=== PATIENT | female | born 1990 | race Caucasian/White ===

== ENCOUNTER 2016-07-05 18:33 | Emergency (ER) | payer BC ==
[~2016-07-05] VITALS: Ht 172.7 cm; Wt 112.9 kg
[2016-07-05 18:45] VITALS: BP 103/72; PULSE 95; RESP 16; TEMP 97.1; O2SAT 99
--- NOTE | 2016-07-05 19:15 | NUR ---
AAOX4. PT STATED ABDOMINAL PAIN LEVEL OF 6/10, NOT RADIATING TO THE BACK. DENIED NAUSEA/VOMITING AT THAT TIME. DENIES SOB, DISTRESS. WILL CONTINUE TO MONITOR.
--- NOTE | 2016-07-05 19:48 | NUR ---
Patient to ER bed 3 to gown for evaluation. Side rails up. Report given to DAMIAN Whatley
[2016-07-05] MEDS ORDERED: NACL 0.9% 1,000 ML IV ONE (19:53)
--- NOTE | 2016-07-05 19:53 | NUR ---
ER at bedside examining patient.
[2016-07-05] MEDS ORDERED: MORPHINE 2 MG/ML INJ. SYRINGE IVP ONE (20:00)
[2016-07-05 20:13] LABS: BASOPHILS # (AUTO) 0.1 K/uL (0.0-0.2); BASOPHILS % (AUTO) 1.8 % (0.0-2.0); EOSINOPHILS # (AUTO) 0.1 K/uL (0.0-0.4); EOSINOPHILS % (AUTO) 0.8 % (0.0-4.0); HEMATOCRIT 40.2 % (36-48); HEMOGLOBIN 13.3 g/dL (12.0-16.0); LYMPHOCYTES % (AUTO) 12.6 % (20.5-51.5); MEAN CORPUSCULAR HEMOGLOBIN 28 pg (27-31); MEAN CORPUSCULAR HGB CONC 33 % (32-36); MEAN CORPUSCULAR VOLUME 85 fL (79.0-98.0); MONOCYTES # (AUTO) 0.5 K/uL (0.0-1.0); MONOCYTES % (AUTO) 6.1 % (1.7-9.3); NEUTROPHILS # (AUTO) 6.2 K/uL (1.8-7.7); NEUTROPHILS % (AUTO) 78.7 % (40.0-70.0); PLATELET COUNT (AUTO) 126 K/uL (130-430); RED BLOOD CELL COUNT(AUTO) 4.75 MIL/uL (4.2-6.2); RED CELL DISTRIBUTION WIDTH 13.9 % (9.0-15.0); WHITE BLOOD COUNT (AUTO) 7.9 K/uL (4.8-10.8)
[2016-07-05 20:26] LABS: CALCIUM 7.9 mg/dL (8.4-11.0); CREATININE 0.86 mg/dL (0.55-1.30); POTASSIUM 3.8 mmol/L (3.5-5.1)
[2016-07-05 20:30] LABS: ALBUMIN 3.6 g/dL (3.4-4.8); TOTAL BILIRUBIN 0.2 mg/dL (0.0-1.0); TOTAL PROTEIN, SERUM 7.6 g/dL (6.4-8.3)
[2016-07-05 20:31] LABS: INR 1.1 (0.8-1.2); PROTHROMBIN TIME 11.7 SECS (9.5-12.5)
[2016-07-05 21:10] VITALS: BP 110/76; PULSE 92; RESP 18; TEMP 97.3; O2SAT 100
--- NOTE | 2016-07-05 21:10 | NUR ---
Patient given written and verbal discharge instructions and verbalizes understanding. ER MD discussed with patient the results and treatment provided. Patient in stable condition. ID arm band removed. IV catheter removed intact and dressing applied, no active bleeding. Rx of LOMOTIL given. Patient educated on pain management and to follow up with PMD. Pain Scale 0/10. Opportunity for questions provided and answered.
== END 2016-07-05 21:10 | disposition home or self-care (01) ==
LOC: SED 18:33
DX: K52.9 Noninfective gastroenteritis and colitis, unspecified (principal)
CPT/HCPCS: 36415; 80053; 82150; 83690; 85025; 85610; 85730; 96361; 96374; 99284; J2270; J7030

== ENCOUNTER 2017-03-20 18:34 | Emergency (ER) | payer BC ==
[~2017-03-20] VITALS: Ht 172.7 cm; Wt 107.0 kg
[2017-03-20 18:49] VITALS: BP_SYST 114
[2017-03-20 19:21] LABS: HEMATOCRIT 43.7 % (36-48); HEMOGLOBIN 14.3 g/dL (12.0-16.0); MEAN CORPUSCULAR HEMOGLOBIN 28 pg (27-31); MEAN CORPUSCULAR HGB CONC 33 % (32-36); MEAN CORPUSCULAR VOLUME 86 fL (79.0-98.0); PLATELET COUNT (AUTO) 269 K/uL (130-430); RED BLOOD CELL COUNT(AUTO) 5.06 MIL/uL (4.2-6.2); WHITE BLOOD COUNT (AUTO) 11.7 K/uL (4.8-10.8)
[2017-03-20 19:30] LABS: CALCIUM 9.6 mg/dL (8.4-11.0); CREATININE 0.78 mg/dL (0.55-1.30)
[2017-03-20 19:35] LABS: ALBUMIN 4.2 g/dL (3.4-4.8); TOTAL BILIRUBIN 0.2 mg/dL (0.0-1.0)
[2017-03-20 19:47] LABS: BILIRUBIN,URINE NEGATIVE (NEGATIVE); BLOOD, URINE NEGATIVE (NEGATIVE); CLARITY/URINE CLEAR (CLEAR); COLOR,URINE YELLOW (YELLOW); GLUCOSE,URINE NEGATIVE (NEGATIVE); KETONES,URINE NEGATIVE (NEGATIVE); LEUKOCYTE ESTERASE ,URINE TRACE (NEGATIVE); NITRITE, URINE NEGATIVE (NEGATIVE); PH,URINE 5.5 (5.0-8.0); PROTEIN URINE NEGATIVE (NEGATIVE); UROBILINOGEN,URINE 0.2 (0.2-1.0)
[2017-03-20 19:58] LABS: BACTERIA,URINE MODERATE /HPF (None Seen); MUCUS,URINE 1+ /LPF (None Seen); RBC,URINE 0-3 /HPF (0-3)
[2017-03-20 20:13] LABS: BASOPHILS % (MANUAL) 0 % (0-2); EOSINOPHILS % (MANUAL) 1 % (0-7); LYMPHOCYTES % (MANUAL) 21 % (20-46); MONOCYTES % (MANUAL) 4 % (0-11)
--- NOTE | 2017-03-20 23:22 | NUR ---
Patient to ER bed 2 to gown for evaluation. Side rails up.
--- NOTE | 2017-03-20 23:25 | NUR ---
Patient AOx4, ambulatory, presents to ER with complaint of back pain and diarrhea x2 days. No other symptoms or complaints at this time.
--- NOTE | 2017-03-20 23:40 | NUR ---
ENRIQUETA FELICIANO Kwaw at bedside for medical evaluation.
--- NOTE | 2017-03-21 00:20 | NUR ---
# 20 gauge angiocath placed to RAC. Use of asceptic technique. Opsite placed over site. Blood return noted. Flushed with 10 cc of normal saline. No evidence of infiltration noted. Patient tolerated well.
[2017-03-21] MEDS: NACL 0.9% 1,000 ML IV ONE (00:26)
--- NOTE | 2017-03-21 00:46 | NUR ---
No adverse reactions noted after medication administration. Will continue to monitor.
[2017-03-21 01:27] VITALS: BP_SYST 114
--- NOTE | 2017-03-21 01:27 | NUR ---
Patient given written and verbal discharge instructions and verbalizes understanding. ER MD discussed with patient the results and treatment provided. Patient in stable condition. ID arm band removed. IV catheter removed intact and dressing applied, no active bleeding. Patient educated on pain management and to follow up with PMD. Pain Scale 0/10. Opportunity for questions provided and answered.
== END 2017-03-21 01:27 | disposition home or self-care (01) ==
LOC: SED 18:34
DX: A08.4 Viral intestinal infection, unspecified (principal)
CPT/HCPCS: 36415; 80053; 81000; 81025; 83690; 85007; 85027; 96360; 99284; J7030

== ENCOUNTER 2017-08-17 19:30 | Emergency (ER) | payer BC ==
[~2017-08-17] VITALS: Ht 172.7 cm; Wt 104.8 kg
[2017-08-17 19:52] VITALS: BP_SYST 114
[2017-08-17 20:45] LABS: BILIRUBIN,URINE NEGATIVE (NEGATIVE); BLOOD, URINE 3+ (NEGATIVE); CLARITY/URINE SL HAZY (CLEAR); COLOR,URINE ORANGE (YELLOW); GLUCOSE,URINE TRACE (NEGATIVE); KETONES,URINE NEGATIVE (NEGATIVE); LEUKOCYTE ESTERASE ,URINE 1+ (NEGATIVE); NITRITE, URINE POSITIVE (NEGATIVE); PH,URINE 6.5 (5.0-8.0); PROTEIN URINE 1+ (NEGATIVE)
[2017-08-17 20:57] VITALS: BP_SYST 112
[2017-08-17 21:04] LABS: BACTERIA,URINE FEW /HPF (None Seen); RBC,URINE 50-80 /HPF (0-3); WBC,URINE 20-50 /HPF (0-3)
[2017-08-17 21:05] LABS: MUCUS,URINE None Seen /LPF (None Seen)
== END 2017-08-17 20:57 | disposition home or self-care (01) ==
LOC: SED 19:30
DX: N39.0 Urinary tract infection, site not specified (principal)
CPT/HCPCS: 81000-TC; 87086; 99284